=== PATIENT | female | born 1970 | race Two or more races ===

== ENCOUNTER 2022-09-01 09:16 | Day surgery (SDC) | payer MEDICAID ==
[2022-08-26 09:53] LABS: Basophils # (auto) 0.1 10 ^3/uL (0-0.2); Basophils % (auto) 0.9 % (0.0-2.0); Eosinophils # (auto) 0.1 10 ^3/uL (0-0.8); Eosinophils % (auto) 1.5 % (0.0-7.0); Hematocrit 45.5 % (36.0-46.0); Hemoglobin 15.1 g/dL (12.2-16.2); Lymphocytes % (auto) 35.1 % (10.0-50.0); Mean Corpuscular Hemoglobin 31.5 pg (28.0-32.0); Mean Corpuscular Hgb Conc. 33.2 g/dL (32.0-36.0); Mean Corpuscular Volume 94.9 fL (80.0-100.0); Monocytes # (auto) 0.5 10 ^3/uL (0-1.3); Monocytes % (auto) 6.2 % (0.0-12.0); Neutrophils # (auto) 4.8 10 ^3/uL (1.6-8.6); Neutrophils % (auto) 56.3 % (37.0-80.0); Red Cell Distribution Width 14.1 % (11.8-14.3); White Blood Cell 8.5 10^3/uL (4.4-10.8)
[2022-08-26 10:00] LABS: Urine Bacteria FEW /hpf (None Seen); Urine Blood Negative /uL (Negative); Urine Mucus FEW (None Seen); Urine Specific Gravity 1.009 (1.001-1.035); Urine WBC 19 /hpf (0 - 5)
[2022-08-26 10:33] LABS: Potassium 4.3 mmol/L (3.5-5.1)
[2022-08-26 10:40] LABS: Albumin 3.7 g/dL (3.4-5.0); BUN/Creatinine Ratio 21.5 (10.0-20.0); Bilirubin, Total 0.4 mg/dL (0.2-1.0); Calcium 9.1 mg/dL (8.5-10.1)
[2022-08-26 11:15] LABS: INR 0.92 (0.9-1.15); Partial Thromboplastin Time 29.1 sec (24.6-33.4)
[~2022-09-01] VITALS: Ht 165.1 cm; Wt 83.9 kg
[~2022-09-01 09:16] MED LIST: APRE30TA PO; BUPR8SUB18 SL; HYDR-4798 PO; METH2.5T PO; VENL150C58 PO
[2022-09-01] MEDS ORDERED: MIDAZOLAM HCL 2MG/2ML 2ml VIAL (1mg/ml) ONE (10:03)
[2022-09-01] MEDS ORDERED: fentaNYL CITRATE 100 MCG/2 ML VL ONE (10:03)
[2022-09-01] MEDS ORDERED: ONDANSETRON HCL 4 MG/2 ML VIAL ONE (10:03)
[2022-09-01] MEDS ORDERED: PROPOFOL 10 MG/ML 20 ML IV ONE ×2 (10:03→10:28)
[2022-09-01 11:00] VITALS: BP 105/63
[2022-09-01] MEDS ORDERED: ONDANSETRON HCL 4 MG/2 ML VIAL IV PRN (11:00)
== END 2022-09-01 11:15 | disposition home or self-care (01) ==
LOC: GI 09:16
PROVIDERS: ATTEND Internal Medicine Gastroenterology
DX: Z12.11 Encounter for screening for malignant neoplasm of colon (principal); K64.8 Other hemorrhoids
CPT/HCPCS: 36415; 45378; 80053; 81001; 85025; 85610; 85730; J2250; J2405; J2704; J3010; J7030